=== PATIENT | female | born 1990 | race Two or more races ===

== ENCOUNTER 2019-01-27 14:06 | Emergency (ER) | payer SELFPAY ==
[~2019-01-27] VITALS: Ht 167.6 cm; Wt 52.0 kg
[2019-01-27 14:58] VITALS: BP 107/68
== END 2019-01-27 18:50 | disposition home or self-care (01) ==
LOC: ER 14:06
DX: R59.9 Enlarged lymph nodes, unspecified (principal)
CPT/HCPCS: 87070; 87430; 99283